=== PATIENT | female | born 1985 | race Asian ===

== ENCOUNTER 2019-01-12 19:00 | Emergency (ER) | payer BC, OTHER ==
[2019-01-12 19:19] VITALS: BP 118/77
--- NOTE | 2019-01-12 19:41 | UC ---
Neck Pain HPI - HPI Summary HPI Summary: 33-year-old woman comes in with a chief complaint of pain full swallowing and a feeling of swelling in her throat. Started last evening after eating. The pain is worse with swallowing. The areas the lower anterior neck. No fevers or chills. No history of thyroid issues. - History of Current Complaint Chief Complaint: UCGI Stated Complaint: SORE THROAT Time Seen by Provider: 01/12/19 19:27 Hx Last Menstrual Period: 3 weeks Pain Intensity: 1 - Allergies/Home Medications Allergies/Adverse Reactions: Allergies Allergy/AdvReac Type Severity Reaction Status Date / Time shrimp Allergy scratchy Verified 01/12/19 19:19 throat PMH/Surg Hx/FS Hx/Imm Hx Previously Healthy: Yes - Surgical History Surgical History: Yes Surgery Procedure, Year, and Place: - Family History Known Family History: Positive: Non-Contributory - Social History Alcohol Use: None Substance Use Type: None Smoking Status (MU): Never Smoked Tobacco Review of Systems All Other Systems Reviewed And Are Negative: Yes Constitutional: Positive: Negative Skin: Positive: Negative Eyes: Positive: Negative ENT: Positive: Sore Throat. Negative: Nasal Discharge, Sinus Congestion Respiratory: Positive: Negative Cardiovascular: Positive: Negative Gastrointestinal: Positive: Negative Motor: Positive: Negative Neurovascular: Positive: Negative Musculoskeletal: Positive: Negative Neurological: Positive: Negative Psychological: Positive: Negative Is Patient Immunocompromised?: No Physical Exam Triage Information Reviewed: Yes Appearance: Well-Appearing, No Pain Distress, Well-Nourished Vital Signs: Initial Vital Signs Temp 98.1 F 01/12/19 19:13 Pulse 75 01/12/19 19:13 Resp 15 01/12/19 19:13 BP 118/77 01/12/19 19:13 Pulse Ox 100 01/12/19 19:13 Vital Signs Reviewed: Yes Eye Exam: Normal Eyes: Positive: Conjunctiva Clear ENT: Positive: Pharynx normal, TMs normal, Uvula midline, Other - Posterior pharynx normal on exam. Negative: Tonsillar swelling, Tonsillar exudate, Muffled voice, Hoarse voice Neck: Positive: Supple, Other: - Mild tenderness and swelling lower anterior neck adjacent to trachea. Respiratory: Positive: Lungs clear - No stridor, Normal breath sounds, No respiratory distress Cardiovascular: Positive: RRR Musculoskeletal Exam: Normal Musculoskeletal: Positive: Strength Intact, ROM Intact Neurological Exam: Normal Neurological: Positive: Alert, Muscle Tone Normal Psychological Exam: Normal Psychological: Positive: Age Appropriate Behavior Skin Exam: Normal Neck Pain Course/Dx - Course Course Of Treatment: I discussed the CT report with the patient. No abnormality was seen on the CT. We guru blood work for CBC CMP TSH. Plan is to treat empirically with Augmentin for the possibility of infection. Also prescribed prednisone to be used if needed. Patient will also start on a H2 roybn or proton pump inhibitor [id number] for the possibility of GERD causing irritation of the throat and causing the sensation. We discussed going to the emergency department if she has any difficulties with breathing or swallowing or feels ill. - Differential Dx/Diagnosis Provider Diagnosis: Painful swallowing Discharge - Sign-Out/Discharge Documenting (check all that apply): Patient Departure All imaging exams completed and their final reports reviewed: Yes - Discharge Plan Condition: Stable Disposition: HOME Prescriptions: Amoxicillin/Clavulanate TAB* [Augmentin TAB 875*] 875 mg PO BID #19 tab Patient Education Materials: Pharyngitis (ED) Referrals: Demar Cervantes MD [Primary Care Provider] - Additional Instructions: FOLLOW UP WITH YOUR DOCTOR. GO TO THE EMERGENCY DEPARTMENT FOR ANY WORSENING OF YOUR CONDITION; DIFFICULTY SWALLOWING OR BREATHING, YOU FEEL ILL OR QUESTIONS OR CONCERNS. - Billing Disposition and Condition Condition: STABLE Disposition: Home
[2019-01-12] MEDS ORDERED: Amoxicillin/Clavulanate TAB* 875 MG PO ONE (21:05)
[2019-01-12] MEDS ORDERED: Famotidine TAB* 20 MG PO ONE (21:05)
[2019-01-12] MEDS ORDERED: predniSONE TAB* 20 MG PO ONE (21:07)
[2019-01-13 11:22] LABS: ABS Basophils 0.1 10^3/ul (0-0.2); ABS Eosinophils 0.2 10^3/ul (0-0.6); ABS Lymphocytes 3.6 10^3/ul (1.0-4.8); ABS Monocytes 0.6 10^3/ul (0-0.8); ABS Neutrophils 5.3 10^3/ul (1.5-7.7); ABS Nucleated RBC 0 10^3/ul; Hematocrit 41 % (33-41); Hemoglobin 12.9 g/dL (12.0-16.0); Lymphocyte % 36.3 %; Mean Corpuscular HGB Conc 32 g/dL (31-36); Mean Corpuscular Hemoglobin 26 pg (27-31); Mean Corpuscular Volume 82 fL (80-97); Mean Platelet Volume 10.3 fL (7.4-10.4); Nucleated Red Blood Cells % 0.1; Platelet Count 242 10^3/uL (150-450); Red Blood Count 4.94 10^6 /uL (3.70-4.87); Red Cell Distribution Width 13 % (10.5-15); White Blood Count 9.8 10^3/uL (3.5-10.8)
[2019-01-13 11:46] LABS: TSH (Thyroid Stimulating Horm) 0.91 mcIU/mL (0.34-5.60)
[2019-01-13 12:38] LABS: Albumin 4.6 g/dL (3.2-5.2); Calcium 9.6 mg/dL (8.6-10.3); Potassium 4.1 mmol/L (3.5-5.0); Total Bilirubin 0.3 mg/dL (0.2-1.0)
[2019-01-13 12:44] LABS: Albumin/Globulin Ratio 1.6 (1-3); BUN/Creatinine Ratio 15.2 (8-20); EGFR African American 123.3 (>60); EGFR Non-African American 101.9 (>60); Globulin 2.9 g/dL (2-4); Total Protein 7.5 g/dL (6.4-8.9)
--- NOTE | 2019-01-14 14:44 | UC ---
- Progress Note Progress Note: 01/14/2019 CBC:WNL, CMP:WNL TSH: WNL No change Ena Salcido PA-C Course/Dx - Diagnoses Provider Diagnoses: Painful swallowing Discharge - Sign-Out/Discharge Documenting (check all that apply): Patient Departure - d/c home All imaging exams completed and their final reports reviewed: Yes - Discharge Plan Condition: Stable Disposition: HOME Prescriptions: Amoxicillin/Clavulanate TAB* [Augmentin TAB 875*] 875 mg PO BID #19 tab Patient Education Materials: Pharyngitis (ED) Referrals: Demar Cervantes MD [Primary Care Provider] - Additional Instructions: FOLLOW UP WITH YOUR DOCTOR. GO TO THE EMERGENCY DEPARTMENT FOR ANY WORSENING OF YOUR CONDITION; DIFFICULTY SWALLOWING OR BREATHING, YOU FEEL ILL OR QUESTIONS OR CONCERNS. - Billing Disposition and Condition Condition: STABLE Disposition: Home
== END 2019-01-12 21:20 | disposition home or self-care (01) ==
LOC: UCEAST 19:00
DX: R13.10 Dysphagia, unspecified (principal); Z91.013 Allergy to seafood
CPT/HCPCS: 36415; 70490; 80053; 84443; 85025; 87651; 99203; A9270-GY; G0463; J7512